=== PATIENT | female | born 1990 | race American Indian/Alaskan Native ===

== ENCOUNTER 2016-10-24 21:11 | Emergency (ER) | payer MEDICAID ==
[2016-10-24 21:20] VITALS: BP 145/105
[2016-10-24] MEDS ORDERED: GI Cocktail Oral Solution 30 ML PO ONE (21:21)
--- NOTE | 2016-10-24 21:23 | EDM.PDOC ---
ED HPI GI/ABDOMINAL - General Chief Complaint: Abdominal Pain Stated Complaint: SHARP CHEST PAIN,HARD TO BREATHE Time Seen by Provider: 10/24/16 21:22 Source of Information: Reports: Patient History Limitations: Reports: No limitations - History of Present Illness INITIAL COMMENTS - FREE TEXT/NARRATIVE: onset after eating a burrito. h/o acid reflux still had GB. 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: Musculoskeletal History: Reports: Other (see below) Other Musculoskeletal History: dislocated shoulder Hematologic History: Reports: Anemia Social & Family History - Tobacco Use Smoking Status *Q: Light Tobacco Smoker Years of Tobacco use: 5 Packs/Tins Daily: 0.2 Used Tobacco, but Quit: No Month Tobacco Last Used: mar Second Hand Smoke Exposure: Yes - Caffeine Use Caffeine Use: Reports: Soda - Alcohol Use Days Per Week of Alcohol Use: 0 - Recreational Drug Use Recreational Drug Use: No Recreational Drug Type: Reports: Marijuana/Hashish ED ROS GENERAL - Review of Systems Review Of Systems: ROS reveals no pertinent complaints other than HPI. ED EXAM, GI/ABD - Physical Exam Exam: See Below Exam Limited By: No limitations General Appearance: alert, WD/WN, mild distress, other (crying) Ears: hearing grossly normal Throat/Mouth: Normal voice, No airway compromise, Perioral cyanosis Neck: non-tender, full range of motion Respiratory/Chest: no respiratory distress Cardiovascular: regular rate, rhythm GI/Abdominal: tenderness, other (epiG.). No: guarding, rebound, rigidity Neurological: alert, oriented, normal cognition, normal gait, no motor/sensory deficits Psychiatric: tearful Skin Exam: Warm, Dry Lymphatic: no adenopathy Course - Vital Signs Last Recorded V/S: Last Vital Signs Temp 36.4 C 10/24/16 21:19 Pulse 101 H 10/24/16 21:19 Resp 17 10/24/16 21:19 BP 145/105 H 10/24/16 21:19 Pulse Ox 100 10/24/16 21:19 - Orders/Labs/Meds Labs: Laboratory Tests 10/24/16 10/24/16 Range/Units 21:23 21:23 WBC 11.6 H (5.0-10.0) 10^3/uL RBC 4.33 (4.2-5.4) 10^6/uL Hgb 11.3 L (12.0-16.0) g/dL Hct 34.9 L (37.0-47.0) % MCV 80.6 (80-100) fL MCH 26.1 L (27.0-34.0) pg MCHC 32.4 L (33.0-35.0) g/dL Plt Count 302 (150-450) 10^3/uL Neut % (Auto) 56.1 (42.2-75.2) % Lymph % (Auto) 33.0 (20.5-50.1) % [place] % (Auto) 9.7 H (2-8) % Eos % (Auto) 0.9 L (1.0-3.0) % Baso % (Auto) 0.3 (0.0-1.0) % Sodium 134 L (135-145) mmol/L Potassium 3.4 L (3.6-5.0) mmol/L Chloride 102 (101-111) mmol/L Carbon Dioxide 25.0 (21.0-31.0) mmol/L Anion Gap 10.4 BUN 13 (7-18) mg/dL Creatinine 0.7 (0.6-1.3) mg/dL Est Cr Clr Drug Dosing 119.47 mL/min Estimated GFR (MDRD) > 60 BUN/Creatinine Ratio 18.57 Glucose 95 (74-105) mg/dL Calcium 8.6 (8.4-10.2) mg/dl Total Bilirubin 0.2 (0.2-1.0) mg/dL AST 19 (10-42) IU/L ALT 15 (10-60) IU/L Alkaline Phosphatase 55 (42-121) IU/L Total Protein 6.9 (6.7-8.2) g/dl Albumin 3.7 (3.2-5.5) g/dl Globulin 3.2 Albumin/Globulin Ratio 1.16 Amylase 75 (28-100) U/L Lipase 36 (22-51) U/L Meds: Medications Discontinued Medications Generic Name Dose Route Start Last Admin Trade Name Freq PRN Reason Stop Dose Admin Al Hydroxide/Mg Hydroxide 30 ml 10/24/16 21:21 10/24/16 21:23 Gi Cocktail PO 10/24/16 21:22 30 ml ONETIME ONE Administration Hydromorphone HCl 1 mg 10/24/16 21:55 10/24/16 21:59 Dilaudid IVPUSH 10/24/16 21:56 1 mg ONETIME ONE Administration Iopamidol 100 ml 10/24/16 21:56 10/24/16 22:03 Isovue-300 (61%) IVPUSH 10/24/16 21:57 100 ml ONETIME ONE Administration Morphine Sulfate 2 mg 10/24/16 21:38 10/24/16 21:43 Morphine IVPUSH 10/24/16 21:39 2 mg ONETIME ONE Administration Ondansetron HCl 4 mg 10/24/16 21:38 10/24/16 21:42 Zofran IV 10/24/16 21:39 4 mg ONETIME ONE Administration - Re-Assessments/Exams Free Text/Narrative Re-Assessment/Exam: 10/24/16 23:11 results discussed with Pt who is feeling much better presently Departure - Departure Time of Disposition: 23:12 Disposition: Home, Self-Care 01 Condition: good Clinical Impression: Cholelithiases Qualifiers: Cholelithiasis location: gallbladder Cholecystitis presence: without cholecystitis Biliary obstruction: with biliary obstruction Qualified Code(s): K80.21 - Calculus of gallbladder without cholecystitis with obstruction Instructions: Cholelithiasis, [id number] Forms: ED Department Discharge Additional Instructions: 1) avoid fatty foods, fried foods, oily & greasy foods. 2) have popsicle, jello, bananas, oatmeal, applesauce, baby foods 3) see clinic Thursday for GALL BLADDER ULTRASOUND AND REFERRAL FOR ERCP. rx given: vicodin 5.325mg bid prn x 6
[2016-10-24] MEDS ORDERED: Ondansetron 4 MG/2 ML SDV IV ONE (21:38)
[2016-10-24] MEDS ORDERED: Morphine 2 MG/ML Syringe IVPUSH ONE (21:38)
[2016-10-24 21:48] LABS: CHLORIDE,CL 102 mmol/L (101-111); SODIUM,NA 134 mmol/L (135-145)
[2016-10-24] MEDS ORDERED: HYDROmorphone 1 MG/ML Syringe IVPUSH ONE (21:55)
[2016-10-24] MEDS ORDERED: Iopamidol 612 MG/ML 100 ML Bottle IVPUSH ONE (21:56)
[2016-10-24] MEDS ORDERED: Acetaminophen/HYDROcodone 325-10 MG Tab ONE (23:12)
[2016-10-24] MEDS ORDERED: Acetaminophen/HYDROcodone 325-10 MG Tab PO ONE (23:12)
== END 2016-10-24 23:23 | disposition home or self-care (01) ==
LOC: DL.ED 21:11
DX: K80.21 Calculus of gallbladder without cholecystitis with obstruction (principal); F17.210 Nicotine dependence, cigarettes, uncomplicated; Z86.2 Personal history of diseases of the blood and blood-forming organs and certain disorders involving the immune mechanism; Z87.440 Personal history of urinary (tract) infections
CPT/HCPCS: 36415; 74177; 80053; 82150; 83690; 85025; 96374; 96375; 99284; A9270; J1170; J2270; J2405; Q9967

== ENCOUNTER 2017-10-31 09:53 | Emergency (ER) | payer MEDICAID, OTHER ==
[2017-10-31 10:09] VITALS: BP 135/87
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
[2017-10-31 10:43] LABS: ANION GAP 10.1; CHLORIDE,CL 112 mmol/L (101-111); SODIUM,NA 142 mmol/L (135-145)
[2017-10-31] MEDS ORDERED: Ibuprofen 600 MG Tab PO ONE (11:22)
== END 2017-10-31 11:35 | disposition home or self-care (01) ==
LOC: DL.ED 09:53
DX: S00.03XA Contusion of scalp, initial encounter (principal); F17.210 Nicotine dependence, cigarettes, uncomplicated; Y04.0XXA Assault by unarmed brawl or fight, initial encounter
CPT/HCPCS: 36415; 70450; 70486; 72125; 80053; 80305; 81001; 85025; 99285; A9270; G0480